=== PATIENT | female | born 2005 | race Caucasian/White ===

== ENCOUNTER → 2024-12-31 07:35 | Outpatient (REF) | payer BC, SELFPAY | LOC: PAVMRI 07:35 | PROVIDERS: ATTENDING PHYSICIAN Physician Assistant Medical; REFERRING PHYSICIAN Nurse Practitioner | DX: G44.219 Episodic tension-type headache, not intractable (principal); G43.909 Migraine, unspecified, not intractable, without status migrainosus; Z82.0 Family history of epilepsy and other diseases of the nervous system | CPT/HCPCS: 70551 ==